=== PATIENT | female | born 1990 | race Caucasian/White ===

== ENCOUNTER 2017-03-24 21:36 | Emergency (ER) | payer OTHER ==
[~2017-03-24] VITALS: Ht 152.4 cm; Wt 70.8 kg
[~2017-03-24 21:36] MED LIST: ADVIL,NUPRIN,M200 MG PO; BACTRIM,SEPT1 TABLET PO; BACTROBAN OINTM22 GM TP; BENZONATATE100 MG PO; KEFLEX500 MG PO; LEVOFLOXACIN750 MG PO; MOTRIN800 MG PO; NORCO 7.5/321 TABLET PO; TYLENOL EXTRA500 MG PO; ZOFRAN ODT4 MG PO; ZOFRAN4 MG PO; ZOFRAN8 MG PO
[2017-03-24 21:56] VITALS: BP 124/83
== END 2017-03-25 03:15 | disposition home or self-care (01) ==
LOC: EME 21:36
DX: R51 Headache (principal); V49.40XA Driver injured in collision with unspecified motor vehicles in traffic accident, initial encounter
CPT/HCPCS: 99281; 99282